=== PATIENT | male | born 1945 | race Caucasian/White ===

== ENCOUNTER 2021-01-30 12:13 | Emergency (ER) | payer OTHER ==
[~2021-01-30] VITALS: Ht 165.1 cm; Wt 68.0 kg
--- NOTE | 2021-01-30 12:30 | NUR ---
THE PATIENT BIBA FOR C/O NECK PAIN X 5 DAYS WITH COUGH, FEVER, AND CHILLS. THE PATIENT IS NOTEDWITH NON-PRODUCTIVE COUGH. IN ROOM AIR AND DENIES SOB. RESPIRATION REGULAR AND UNLABORE. DENIES PAIN. ATTACHED TO THE MONITOR.
[2021-01-30 12:55] LABS: LYMPHOCYTES # (AUTO) 0.7 K/uL (0.8-4.8)
--- NOTE | 2021-01-30 12:55 | NUR ---
COVID SWABS DONE AND SENT TO THE LAB
[2021-01-30 12:57] LABS: BASOPHILS # (AUTO) 0.1 K/uL (0.0-0.2); BASOPHILS % (AUTO) 0.7 % (0.0-2.0); EOSINOPHILS % (AUTO) 1.7 % (0.0-6.0); HEMATOCRIT 41 % (39-51); HEMOGLOBIN 13.9 g/dL (13.5-17.5); LYMPHOCYTES % (AUTO) 5.8 % (20.0-44.0); MEAN CORPUSCULAR HGB CONC 34 g/dl (31.0-36.0); MEAN CORPUSCULAR VOLUME 98 fL (80-96); MONOCYTES # (AUTO) 1.6 K/uL (0.1-1.30); NEUTROPHILS # (AUTO) 9.5 K/uL (1.8-8.9); NEUTROPHILS % (AUTO) 78.8 % (43.0-81.0); PLATELET COUNT (AUTO) 316 K/uL (150-450); RED BLOOD CELL COUNT(AUTO) 4.19 MIL/uL (4.5-6.0); WHITE BLOOD COUNT (AUTO) 12.1 K/uL (4.3-11.0)
[2021-01-30] MEDS ORDERED: ACETAMINOPHEN ES 500 MG TABLET PO ONE (13:00)
[2021-01-30] MEDS ORDERED: IV NS 0.9% 1,000 ML BAG IV ONE (13:00)
[2021-01-30 13:02] LABS: BILIRUBIN,URINE Negative (NEGATIVE); CARBON DIOXIDE 30 mmol/L (21-32); CHLORIDE 102 mmol/L (98-107); COLOR,URINE YELLOW (YELLOW); CREATININE 0.9 mg/dL (0.6-1.3); GLUCOSE 108 mg/dL (74-106); LEUKOCYTE ESTERASE ,URINE Negative (NEGATIVE); NITRITE, URINE Negative (NEGATIVE); PH,URINE 7.5 (5.0-8.0); POTASSIUM 4.5 mmol/L (3.5-5.1); PROTEIN,URINE 30 mg/dl (NEGATIVE); SODIUM SERUM 139 mmol/L (136-145); UGLUCOSE >=1000 mg/dL (NEGATIVE); UREA NITROGEN, BLOOD 16 mg/dL (7-18)
[2021-01-30] MEDS ORDERED: ACETAMINOPHEN ES 500 MG TABLET ONE (13:02)
[2021-01-30 13:04] LABS: BACTERIA,URINE Few /HPF (None Seen); RBC,URINE 0-2 /HPF (0-2); SQUAMOUS EPITHELIAL CELL,UR Rare /HPF (None Seen); WBC,URINE 0-2 /HPF (0-3)
[2021-01-30] MEDS ORDERED: ATOR40TA PO (13:05)
[2021-01-30] MEDS ORDERED: TAMS-12 PO (13:05)
[2021-01-30 13:09] LABS: ALANINE AMINOTRANSFERASE 18 U/L (12-78); ALBUMIN 3.2 g/dL (3.4-5.0); ALKALINE PHOSPHATASE 75 U/L (46-116); ASPARTATE AMINOTRANSFERASE 13 U/L (15-37); BILIRUBIN,DIRECT 0.1 mg/dL (0.0-0.2); BILIRUBIN,TOTAL 0.4 mg/dL (0.2-1.0); TOTAL PROTEIN, SERUM 7.4 g/dL (6.4-8.2)
[2021-01-30] MEDS ORDERED: AZIT250T PO (14:43)
--- NOTE | 2021-01-30 15:36 | NUR ---
LAB CALLED TO F/U ON RAPID COVID RESULT
--- NOTE | 2021-01-30 16:59 | NUR ---
PT RESTING IN BED. NO APPARENT DISTRESS. DENIES ANY CHEST DISCOMFORT. ON MONITOR W/ STABLE VITALS. WILL CONTINUE TO MONITOR.
--- NOTE | 2021-01-30 17:25 | NUR ---
CALLED FAMILY. SARA AT [phone]
--- NOTE | 2021-01-30 17:32 | NUR ---
[facility]AK WITH [facility] DOCTOR
--- NOTE | 2021-01-30 18:44 | NUR ---
Note fercho in ED - 01/30/21 at 1848 by DAVID CONTACTED NONA PATTERN VAULT CLERK REGARDING TRANSPORT UPDATE. SPOKE TO ANGELINA. NO NEW UPDATE AT THE MOMENT AND WAS TOLD THEY GONNA CALL BACK.
[2021-01-30] MEDS ORDERED: ACETAMINOPHEN 325 MG TABLET ONE (19:11)
[2021-01-30] MEDS ORDERED: KETOROLAC TROMETHAMINE 15 MG/ML VIAL ONE (19:11)
--- NOTE | 2021-01-30 19:17 | NUR ---
PT C/O L SIDED LUNG PAIN AND CHILLS. PT VITAL SIGNS UPDATED. DR SCOTT MADE AWARE OF PATIENTS COMPLAINTS. MEDICATED ORDERED. SEE EMAR.
--- NOTE | 2021-01-30 19:20 | NUR ---
REPORT GIVEN TO SUPERVISOR ROAD ADMINISTRATOR YANET FRANCO FOR STACY.
[2021-01-30] MEDS ORDERED: KETOROLAC TROMETHAMINE INJ 30 MG/ML VIAL IM ONE (19:30)
[2021-01-30] MEDS ORDERED: ACETAMINOPHEN 325 MG TABLET PO ONE (19:30)
--- NOTE | 2021-01-30 19:38 | NUR ---
CANDIE FROM [facility] CALLED STATING THAT PT. WILL BE TRANSFERED TO [facility] ER. THIS IS ER TO ER TRANSFER. ACCEPTING DOC IS [facility]. REPORT #[phone]. 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
--- NOTE | 2021-01-30 20:02 | NUR ---
REPORT GIVEN TO KRAIG HOLT FOR STACY
[2021-01-30 20:19] VITALS: BP 127/70
--- NOTE | 2021-01-30 20:19 | NUR ---
REPORT GIVEN TO EMT, PT TRANSFERED TO [facility].
== END 2021-01-30 20:27 | disposition short-term general hospital (02) ==
LOC: ER 12:33
DX: J20.8 Acute bronchitis due to other specified organisms (principal); M54.2 Cervicalgia; R00.0 Tachycardia, unspecified; J43.9 Emphysema, unspecified; Z20.822 Contact with and (suspected) exposure to COVID-19
CPT/HCPCS: 36415; 71045; 72125; 80048; 80076; 81001; 83605; 84145; 84484; 85025; 85730; 87040 ×2; 87081; 87086; 87426; 93005; 96360; 96372; 99285; C9803; J1885; J7030; U0003

== ENCOUNTER 2024-04-11 13:05 | Emergency (ER) | payer OTHER ==
[~2024-04-11] VITALS: Ht 165.1 cm; Wt 70.3 kg
[~2024-04-11 13:05] MED LIST: ATOR40TA PO; AZIT250T PO; TAMS-12 PO
[2024-04-11] MEDS ORDERED: IPRATROPIUM NEB FS 0.5 MG/2.5 ML AMPUL.NEB ONE (13:29)
[2024-04-11] MEDS ORDERED: ALBUTEROL FS 2.5 MG/3 ML VIAL.NEB ONE (13:29)
[2024-04-11] MEDS: methylPREDNISolone SOD SUCC 125 MG/2ML VIAL IV ONE (13:30)
[2024-04-11 13:31] VITALS: O2SAT 94
[2024-04-11] MEDS: ALBUTEROL FS 2.5 MG/3 ML VIAL.NEB NEB ONE (13:31)
[2024-04-11] MEDS: IPRATROPIUM NEB FS 0.5 MG/2.5 ML AMPUL.NEB NEB ONE (13:31)
[2024-04-11 13:37] LABS: BASOPHILS # (AUTO) 0.1 K/uL (0.0-0.2); BASOPHILS % (AUTO) 0.6 % (0.0-2.0); EOSINOPHILS % (AUTO) 0.1 % (0.0-6.0); HEMATOCRIT 42 % (39-51); HEMOGLOBIN 14.3 g/dL (13.5-17.5); LYMPHOCYTES # (AUTO) 0.5 K/uL (0.8-4.8); LYMPHOCYTES % (AUTO) 2.9 % (20.0-44.0); MEAN CORPUSCULAR HEMOGLOBIN 32 PG (26.0-33.0); MEAN CORPUSCULAR HGB CONC 34 g/dl (31.0-36.0); MEAN CORPUSCULAR VOLUME 95 fL (80-96); MONOCYTES # (AUTO) 1.1 K/uL (0.1-1.30); MONOCYTES % (AUTO) 5.9 % (2.0-12.0); NEUTROPHILS # (AUTO) 16.5 K/uL (1.8-8.9); NEUTROPHILS % (AUTO) 90.5 % (43.0-81.0); PLATELET COUNT (AUTO) 324 K/uL (150-450); RED BLOOD CELL COUNT(AUTO) 4.45 MIL/uL (4.5-6.0); RED CELL DISTRIBUTION WIDTH 13.3 % (11.5-15.0); WHITE BLOOD COUNT (AUTO) 18.2 K/uL (4.3-11.0)
[2024-04-11 13:51] LABS: CALCIUM, SERUM 9.3 mg/dL (8.5-10.1); CARBON DIOXIDE 31 mmol/L (21-32); CHLORIDE 104 mmol/L (98-107); CREATININE 0.9 mg/dL (0.6-1.3); GLUCOSE 142 mg/dL (74-106); POTASSIUM 3.9 mmol/L (3.5-5.1); SODIUM SERUM 139 mmol/L (136-145); UREA NITROGEN, BLOOD 11 mg/dL (7-18)
[2024-04-11] MEDS ORDERED: methylPREDNISolone SOD SUCC 125 MG/2ML VIAL ONE (14:00)
[2024-04-11 14:31] VITALS: O2SAT 98
[2024-04-11] MEDS: CEFTRIAXONE 1GM BAG (ER ONLY) 1 GM/50 ML PIGGYBACK IV ONE (16:00)
[2024-04-11] MEDS ORDERED: CEFTRIAXONE 1GM BAG (ER ONLY) 50 ML IV ONE (16:03)
[2024-04-11] MEDS: AZITHROMYCIN 500 MG in IV D5W 250 ML IV ONE (16:30)
[2024-04-11 19:17] VITALS: BP 133/64; TEMP 98.4; O2SAT 95
== END 2024-04-11 20:45 | disposition short-term general hospital (02) ==
LOC: ER 13:05
DX: J44.1 Chronic obstructive pulmonary disease with (acute) exacerbation (principal); Z99.81 Dependence on supplemental oxygen; Z20.822 Contact with and (suspected) exposure to COVID-19
CPT/HCPCS: 99285; 96365; 96375; 71045; 87426; 93005; 85025; 80048; 36415; 84484 ×2; 83880; 94640; 94799 ×2; J2919; A4223; J0696

== ENCOUNTER 2024-05-08 18:20 | Emergency (ER) | payer OTHER ==
[~2024-05-08] VITALS: Ht 165.1 cm; Wt 68.0 kg
[2024-05-08 18:50] VITALS: BP 167/76; TEMP 97.7
[2024-05-08 19:18] LABS: BASOPHILS # (AUTO) 0.1 K/uL (0.0-0.2); BASOPHILS % (AUTO) 0.6 % (0.0-2.0); EOSINOPHILS % (AUTO) 0.1 % (0.0-6.0); HEMATOCRIT 44 % (39-51); HEMOGLOBIN 14.9 g/dL (13.5-17.5); LYMPHOCYTES # (AUTO) 0.5 K/uL (0.8-4.8); LYMPHOCYTES % (AUTO) 5.3 % (20.0-44.0); MEAN CORPUSCULAR HEMOGLOBIN 33 PG (26.0-33.0); MEAN CORPUSCULAR HGB CONC 34 g/dl (31.0-36.0); MEAN CORPUSCULAR VOLUME 96 fL (80-96); MONOCYTES # (AUTO) 0.7 K/uL (0.1-1.30); MONOCYTES % (AUTO) 7.4 % (2.0-12.0); NEUTROPHILS # (AUTO) 7.8 K/uL (1.8-8.9); NEUTROPHILS % (AUTO) 86.6 % (43.0-81.0); PLATELET COUNT (AUTO) 334 K/uL (150-450); RED BLOOD CELL COUNT(AUTO) 4.54 MIL/uL (4.5-6.0); RED CELL DISTRIBUTION WIDTH 14.1 % (11.5-15.0)
[2024-05-08 19:43] LABS: LACTIC ACID 1.5 mmol/L (0.4-2.0)
[2024-05-08] MEDS: IV NS 0.9% 1,000 ML BAG IV ONE (19:44)
[2024-05-08 19:57] LABS: ALANINE AMINOTRANSFERASE 24 U/L (12-78); ALBUMIN 3.3 g/dL (3.4-5.0); ALKALINE PHOSPHATASE 76 U/L (46-116); ASPARTATE AMINOTRANSFERASE 19 U/L (15-37); BILIRUBIN,DIRECT 0.2 mg/dL (0.0-0.2); BILIRUBIN,TOTAL 0.7 mg/dL (0.2-1.0); CALCIUM, SERUM 8.7 mg/dL (8.5-10.1); CARBON DIOXIDE 27 mmol/L (21-32); CHLORIDE 102 mmol/L (98-107); CREATININE 1.2 mg/dL (0.6-1.3); GLUCOSE 138 mg/dL (74-106); POTASSIUM 4.3 mmol/L (3.5-5.1); SODIUM SERUM 135 mmol/L (136-145); TOTAL PROTEIN, SERUM 6.7 g/dL (6.4-8.2); UREA NITROGEN, BLOOD 13 mg/dL (7-18)
[2024-05-08 21:03] LABS: APPEARANCE,URINE CLEAR (CLEAR); BILIRUBIN,URINE NEGATIVE (NEGATIVE); BLOOD, URINE NEGATIVE Ery/uL (NEGATIVE); COLOR,URINE YELLOW (YELLOW); KETONES,URINE 2+ mg/dL (NEGATIVE); LEUKOCYTE ESTERASE ,URINE NEGATIVE (NEGATIVE); NITRITE, URINE NEGATIVE (NEGATIVE); PROTEIN,URINE 1+ mg/dl (NEGATIVE); UGLUCOSE NEGATIVE (NEGATIVE); UROBILINOGEN,URINE 0.2 EU/dL (0.2)
[2024-05-08 21:07] LABS: ADD URINE CULTURE NO; BACTERIA,URINE Few /HPF (None Seen); MUCUS,URINE Moderate /LPF (None Seen); SQUAMOUS EPITHELIAL CELL,UR 0-2 /HPF (None Seen)
[2024-05-08] MEDS ORDERED: AZITHROMYCIN 500 MG VIAL ONE (22:31)
[2024-05-08] MEDS: ALBUTEROL FS 2.5 MG/3 ML VIAL.NEB NEB ONE (22:35)
[2024-05-08] MEDS: IPRATROPIUM NEB FS 0.5 MG/2.5 ML AMPUL.NEB NEB ONE (22:35)
[2024-05-08] MEDS: predniSONE 20 MG TABLET PO ONE (22:42)
[2024-05-08] MEDS: CEFTRIAXONE 1GM BAG (ER ONLY) 1 GM/50 ML PIGGYBACK IV ONE (22:42)
[2024-05-08] MEDS: AZITHROMYCIN 500 MG in IV D5W 250 ML IV ONE (22:50)
[2024-05-08 23:35] VITALS: O2SAT 95
[2024-05-08 23:45] VITALS: O2SAT 100
[2024-05-08 23:50] VITALS: O2SAT 100
[2024-05-09] VITALS: O2SAT 100
== END 2024-05-09 00:31 | disposition short-term general hospital (02) ==
LOC: ER 18:21
DX: J44.1 Chronic obstructive pulmonary disease with (acute) exacerbation (principal); J18.9 Pneumonia, unspecified organism; E86.0 Dehydration; R00.0 Tachycardia, unspecified; E87.8 Other disorders of electrolyte and fluid balance, not elsewhere classified; R51.9 Headache, unspecified; Z20.822 Contact with and (suspected) exposure to COVID-19
CPT/HCPCS: 99285; 96365; 70450; 71045; 87426; 93005; 87804 ×2; 85025; 80048; 87040; 87086; 83605; 80076; 81001; 36415; 84484; 94640; J7512; J7030; J0456; J0696; J7060